=== PATIENT | female | born 1995 | race Caucasian/White ===

== ENCOUNTER 2023-11-03 11:43 | Emergency (ER) | payer BC, SELFPAY ==
--- NOTE | 2023-11-03 11:46 | EXP.UTC ---
Discharge Plan Disposition Patient Disposition: Home, Self-Care Condition: Good Referrals Follow up/Referrals: Erna Nicholas [Primary Care Provider] - See instructions Activity Restrictions/Add. Instructions Additional Instructions/Restrictions: Follow up with [facility] Clinical Impressions Clinical Impression: Amenorrhea Instructions Patient Instructions: DI for Amenorrhea Discharge ED Provider: Izabella Reilly [facility] [place] General Stated complaint: test Time Seen by Provider: 11/03/23 12:47 History of Present Illness Provider Complaint: Patient presents with amenorhhea X 3 months. Does have Nexplanon but has emotional changes, fatigue, breast tenderness, etc. Onset (ago): month(s) (3) Relieving factors: none Exacerbating factors: none Associated symptoms: denies other symptoms Treatments prior to arrival: none Related Data Allergies Allergy/AdvReac Type Severity Reaction Status Date / Time No Known Allergies Allergy Verified 11/03/23 12:36 [facility] Disclaimer: The information contained in this section may have been updated after the patient was seen, as this information can be updated by other users. Social History Smoking Status: Never smoker alcohol intake: never current occupational status: employed Travel in the last 8 weeks: None ROS Obtained: Yes All systems reviewed & no additional complaints except as documented Constitutional Constitutional: Reports fatigue Genitourinary Female Genitourinary: Reports amenorrhea Endocrine Endocrine: Reports fatigue Physical Exam General General appearance: alert and in no apparent distress Neck Neck exam: Present normal inspection, full ROM and trachea midline; Absent meningismus or lymphadenopathy Chest Chest inspection: Present normal inspection and symmetric chest wall rise; Absent tenderness Respiratory Respiratory exam: Present normal lung sounds bilaterally; Absent respiratory distress Cardiovascular Cardiovascular exam: Present regular rate and normal rhythm; Absent JVD Abdominal Exam Abdominal exam: Present soft and normal bowel sounds; Absent distention, tenderness or guarding Extremities Exam Extremities exam: Present normal inspection, full ROM and normal capillary refill; Absent calf tenderness Neurological Exam Neurological exam: Present alert and oriented X3 Psychiatric Psychiatric exam: Present normal affect and normal mood Skin Skin exam: Present warm, dry, intact and normal color Lymphatic Lymphatic Findings: no adenopathy Medical Decision Making Eb Inquiry Pt receiving controlled substance: No Lab Data Lab results reviewed: Yes I reviewed the patient's lab results.
[2023-11-03 12:25] VITALS: BP 118/85; PULSE 83; RESP 18; TEMP 36.6; O2SAT 98; BMI 27.7
[2023-11-03 13:20] LABS: HCG Qualitative, Serum Negative (Negative)
[2023-11-03 13:49] VITALS: BP 118/85; PULSE 83; RESP 18; TEMP 36.6; O2SAT 98
== END 2023-11-03 13:52 | disposition home or self-care (01) ==
PROVIDERS: Emergency Provider Physician Assistant; PCP Nurse Practitioner Family
DX: N91.2 Amenorrhea, unspecified (principal); Z32.02 Encounter for pregnancy test, result negative
CPT/HCPCS: 84703; 99203; 99212; G0463